=== PATIENT | female | born 1980 | race Caucasian/White ===

== ENCOUNTER 2019-09-27 11:02 | Emergency (ER) | payer OTHER ==
[~2019-09-27] VITALS: Ht 165.1 cm; Wt 64.0 kg
[2019-09-27 11:06] VITALS: Ht 165.1 cm; Wt 64.0 kg
[2019-09-27 12:40] VITALS: BP 147/78
== END 2019-09-27 12:40 | disposition home or self-care (01) ==
LOC: ED 11:02
DX: L02.31 Cutaneous abscess of buttock (principal)
CPT/HCPCS: J2001

== ENCOUNTER 2019-09-29 14:46 | Emergency (ER) | payer OTHER ==
[~2019-09-29] VITALS: Ht 162.6 cm; Wt 62.6 kg
[2019-09-29 15:02] VITALS: Ht 162.6 cm; Wt 62.6 kg
[2019-09-29 15:59] VITALS: BP 136/71
== END 2019-09-29 15:59 | disposition home or self-care (01) ==
LOC: ED 14:46
DX: L02.212 Cutaneous abscess of back [any part, except buttock and flank] (principal)